=== PATIENT | female | born 1990 | race Native Hawaiian/Other Pacific Islander ===

== ENCOUNTER 2023-09-05 10:30 | Inpatient (IN) | payer OTHER ==
[~2023-09-05] VITALS: Ht 152.4 cm; Wt 76.6 kg
[~2023-09-05 10:30] MED LIST: PNV,1TAB3; VITA1CAP25
[2023-09-05] MEDS ORDERED: BISACODYL 10MG SUPP PR ONE (11:55)
[2023-09-05 12:31] LABS: BASO % 0.2 % (0.0-1.0); EOS % 0.1 % (0.0-3.0); HEMATOCRIT 33.4 % (36.0-47.0); HEMOGLOBIN 10.3 g/dl (12.0-15.5); LYMPH # 0.7 10^3/uL (1.5-5.0); LYMPH % 5.9 % (24.0-44.0); MEAN CORPUSCULAR HEMOGLOBIN 28.5 pg (27.0-33.0); MEAN CORPUSCULAR HGB CONC 30.8 g/dl (32.0-36.5); MEAN CORPUSCULAR VOLUME 92.3 fl (80.0-96.0); MONO # 1.3 10^3/uL (0.0-0.8); MONO % 11.5 % (2.0-8.0); NEUTROPHILS # 9.2 10^3/uL (1.5-8.5); NEUTROPHILS % 81.9 % (36.0-66.0); PLATELET COUNT, AUTOMATED 129 10^3/uL (150-450); RED BLOOD COUNT 3.62 10^6/uL (4.00-5.40); WHITE BLOOD COUNT 11.3 10^3/uL (4.0-10.0)
[2023-09-05 12:51] LABS: HCG, SERUM QUALITATIVE NEGATIVE (NEGATIVE)
[2023-09-05 12:56] LABS: LIPASE 36 U/L (12-53)
[2023-09-05 12:58] LABS: ALBUMIN 3.5 G/DL (3.2-5.2); ALKALINE PHOSPHATASE 107 U/L (46-116); ALT/SGPT 45 U/L (7.0-40); AST/SGOT 32 U/L (<34); BILIRUBIN,TOTAL 1.2 MG/DL (0.3-1.2); BLOOD UREA NITROGEN 17 MG/DL (9-23); CALCIUM LEVEL 8.3 MG/DL (8.5-10.1); CARBON DIOXIDE LEVEL 28 MMOL/L (20-31); CHLORIDE LEVEL 105 MMOL/L (98-107); CREATININE FOR GFR 0.91 MG/DL (0.55-1.30); GLOMERULAR FILTRATION RATE > 60.0 (>60); GLUCOSE, FASTING 109 MG/DL (60-100); POTASSIUM SERUM 3.6 MMOL/L (3.5-5.1); SODIUM LEVEL 138 MMOL/L (136-145); TOTAL PROTEIN 7.5 G/DL (5.7-8.2)
[2023-09-05] MEDS ORDERED: NS 1,000 ML IV ONE (13:10)
[2023-09-05] MEDS ORDERED: KETOROLAC 30 MG/ML 1ML VIAL IV ONE (13:10)
[2023-09-05] MEDS ORDERED: ONDANSETRON 4MG 2ML VIAL IV ONE (13:10)
[2023-09-05] MEDS ORDERED: MORPHINE 4 MG/ML 1ML VIAL IV ONE (14:00)
[2023-09-05] MEDS ORDERED: LR 2,000 ML IV ONE (15:30)
[2023-09-05] MEDS ORDERED: HYDROMORPHONE HCL 0.5 MG/ 0.5 ML SYRINGE IV PRN (15:30)
[2023-09-05] MEDS ORDERED: ACETAMINOPHEN TAB 650MG DOSE (2X325MG) PO PRN (15:30)
[2023-09-05] MEDS ORDERED: ONDANSETRON 4MG 2ML VIAL IV PRN (15:30)
[2023-09-05] MEDS ORDERED: MED REC IN PROGRESS XX SCH (16:10)
[2023-09-05] MEDS ORDERED: IBUP200T46 PO (16:11)
[2023-09-05] MEDS ORDERED: HOME MED LIST COMPLETE! XX SCH (16:15)
[2023-09-05] MEDS: D5W/0.45% SODIUM CHLORIDE 1,000 ML IV SCH ×2 (18:19→23:16)
[2023-09-05 18:53] LABS: PROCALCITONIN 0.07 ng/ml
[2023-09-05] MEDS ORDERED: ISOVUE-300 61% 100ML VIAL As Ordered ONE (18:55)
[2023-09-05] MEDS ORDERED: LIDOCAINE 2% 5ML JELLY UROJET As Ordered ONE (19:10)
[2023-09-05] MEDS ORDERED: ceFAZolin 1GM VIAL As Ordered ONE (19:35)
[2023-09-05] MEDS ORDERED: cefTRIAXone SOD 1GM VIAL As Ordered ONE (19:37)
[2023-09-05] MEDS ORDERED: propofoL 200 MG/20 ML VIAL As Ordered ONE (19:43)
[2023-09-05] MEDS ORDERED: fentaNYL 100 MCG/2 ML INJECTION As Ordered ONE (19:43)
[2023-09-05] MEDS ORDERED: MIDAZOLAM INJ 2MG/2ML VIAL As Ordered ONE (19:43)
[2023-09-05] MEDS ORDERED: KETOROLAC 60MG 2ML VIAL As Ordered ONE (19:51)
[2023-09-05] MEDS ORDERED: cefTRIAXone SOD 1 GM in D5W MINI-BAG PLUS 50 ML IV SCH (20:00)
[2023-09-05] MEDS: KETOROLAC 30 MG/ML 1ML VIAL IV SCH (20:00)
[2023-09-05 22:10] LABS: APPEARANCE, URINE TURBID (CLEAR); BACTERIA, URINE AUTO NEGATIVE (NEGATIVE); BILIRUBIN, URINE AUTO NEGATIVE (NEGATIVE); BLOOD, URINE BLOOD 3+ (NEGATIVE); COLOR, URINE AMBER (YELLOW); GLUCOSE, URINE (UA) AUTO 1+ mg/dL (NEGATIVE); KETONE, URINE AUTO NEGATIVE (NEGATIVE); LEUKOCYTE ESTERASE, URINE AUTO 2+ (NEGATIVE); MUCUS, URINE LARGE (NEGATIVE); NITRITE, URINE AUTO NEGATIVE (NEGATIVE); PROTEIN, URINE AUTO 2+ mg/dL (NEGATIVE); RBC, URINE AUTO TNTC /HPF (0-3); SQUAMOUS EPITHELIAL CELL UR AU 0 /HPF (0-6); UROBILINOGEN, URINE AUTO 0.2 mg/dL (0.0-2.0); WBC, URINE AUTO TNTC /HPF (0-3)
[2023-09-05 23:12] VITALS: BP 128/72; TEMP 97.5; O2SAT 100
[2023-09-06] MEDS: KETOROLAC 30 MG/ML 1ML VIAL IV SCH (02:05)
[2023-09-06 06:00] VITALS: BP 105/67; TEMP 97.4; O2SAT 100
[2023-09-06 07:36] LABS: BASO % 0.3 % (0.0-1.0); EOS # 0.1 10^3/uL (0.0-0.5); HEMATOCRIT 29.4 % (36.0-47.0); HEMOGLOBIN 9.1 g/dl (12.0-15.5); LYMPH # 1.1 10^3/uL (1.5-5.0); LYMPH % 15.3 % (24.0-44.0); MEAN CORPUSCULAR HEMOGLOBIN 28.5 pg (27.0-33.0); MEAN CORPUSCULAR VOLUME 92.2 fl (80.0-96.0); MONO # 0.8 10^3/uL (0.0-0.8); MONO % 10.6 % (2.0-8.0); NEUTROPHILS # 5.3 10^3/uL (1.5-8.5); NEUTROPHILS % 72.4 % (36.0-66.0); PLATELET COUNT, AUTOMATED 114 10^3/uL (150-450); RED BLOOD COUNT 3.19 10^6/uL (4.00-5.40); WHITE BLOOD COUNT 7.3 10^3/uL (4.0-10.0)
[2023-09-06 07:53] LABS: BLOOD UREA NITROGEN 12 MG/DL (9-23); CALCIUM LEVEL 7.3 MG/DL (8.5-10.1); CARBON DIOXIDE LEVEL 26 MMOL/L (20-31); CHLORIDE LEVEL 107 MMOL/L (98-107); CREATININE FOR GFR 0.68 MG/DL (0.55-1.30); GLOMERULAR FILTRATION RATE > 60.0 (>60); GLUCOSE, FASTING 110 MG/DL (60-100); POTASSIUM SERUM 3.5 MMOL/L (3.5-5.1); SODIUM LEVEL 139 MMOL/L (136-145)
[2023-09-06] MEDS ORDERED: KETOROLAC 30 MG/ML 1ML VIAL IV PRN (08:00)
[2023-09-06] MEDS ORDERED: CEFD1CAP9 PO (10:31)
== END 2023-09-06 11:27 | disposition home or self-care (01) | DRG 661 ==
LOC: M ED 10:30 → M ED INP 15:26 → M MS4PR 23:02
PROVIDERS: ADMIT General Practice; ATTEND Internal Medicine
PROC: 0T778DZ Dilation of Left Ureter with Intraluminal Device, Via Natural or Artificial Opening Endoscopic (ICD-10-PCS; principal; 2023-09-05 17:08)
DX: N13.1 Hydronephrosis with ureteral stricture, not elsewhere classified (principal); D50.9 Iron deficiency anemia, unspecified; E66.9 Obesity, unspecified; N39.0 Urinary tract infection, site not specified; Z68.31 Body mass index [BMI] 31.0-31.9, adult; G89.29 Other chronic pain; M54.9 Dorsalgia, unspecified; D69.6 Thrombocytopenia, unspecified

== ENCOUNTER 2023-10-17 06:23 | Day surgery (SDC) | payer OTHER ==
[~2023-10-17] VITALS: Ht 152.4 cm; Wt 74.3 kg
[2023-10-17] MEDS: ceFAZolin SOD 2 GM in IV 1 EA IV ONE (06:00)
[~2023-10-17 06:23] MED LIST changes: +CEFD1CAP9 PO; +IBUP200T46 PO
[2023-10-17] MEDS ORDERED: LR 1,000 ML IV SCH (06:55)
[2023-10-17] MEDS ORDERED: MIDAZOLAM INJ 2MG/2ML VIAL As Ordered ONE (07:11)
[2023-10-17] MEDS ORDERED: fentaNYL 100 MCG/2 ML INJECTION As Ordered ONE (07:11)
[2023-10-17] MEDS ORDERED: propofoL 200 MG/20 ML VIAL As Ordered ONE (07:11)
[2023-10-17] MEDS ORDERED: LIDOCAINE 2% 100MG/5ML SDV (FOR ANES.) As Ordered ONE (07:11)
[2023-10-17] MEDS: ISOVUE-300 61% 100ML VIAL As Ordered ONE (07:12)
[2023-10-17] MEDS ORDERED: ONDANSETRON 4MG 2ML VIAL As Ordered ONE (07:17)
[2023-10-17] MEDS ORDERED: KETOROLAC 60MG 2ML VIAL As Ordered ONE (07:57)
[2023-10-17] MEDS ORDERED: fentaNYL 100 MCG/2 ML INJECTION IV PRN (08:45)
[2023-10-17] MEDS ORDERED: ONDANSETRON 4MG 2ML VIAL IV PRN (08:45)
[2023-10-17] MEDS ORDERED: oxyCODONE 5MG TAB PO PRN (08:45)
[2023-10-17] MEDS ORDERED: PERCOCET 5MG/325MG TAB PO PRN (08:55)
[2023-10-17 10:05] VITALS: BP 155/81; TEMP 97.4; O2SAT 97
[2023-10-17] MEDS ORDERED: CEPH500C PO (10:24)
== END 2023-10-17 10:07 | disposition home or self-care (01) ==
LOC: M SDC 06:23
PROVIDERS: ATTEND Urology
DX: N20.2 Calculus of kidney with calculus of ureter (principal); Z87.442 Personal history of urinary calculi
CPT/HCPCS: 52356; 76000; 81025; 82365; C1769; C1894; C2617; J0690; J1100; J1885; J2250; J2405; J3010; Q9967

== ENCOUNTER → 2023-10-20 | Outpatient (CLI) | payer OTHER ==
[~2023-10-20] MED LIST changes: +CEPH500C PO; +ISOVUE-370 76% 100ML VIAL As Ordered ONE
== END ==
LOC: M RAD 13:11
PROVIDERS: ATTEND Nurse Practitioner Family
DX: N28.9 Disorder of kidney and ureter, unspecified (principal)